=== PATIENT | male | born 1950 | race African-American/Black ===

== ENCOUNTER 2022-05-14 12:47 | Emergency (ER) | payer OTHER, BC ==
[2022-05-14 13:03] VITALS: RESP 18; TEMP 98; BMI 22.0
[2022-05-14 14:29] LABS: BASO % 0.6 % (0-2.0); EOS % 0.9 % (0-4.5); LYMPH % 22.6 % (8-40); MCH 30.3 pg (25.7-33.7); MCHC 32.6 g/dl (32.0-35.9); MEAN CELL VOLUME 92.8 fl (80-96); MEAN PLT VOLUME 8.4 fl (7.5-11.1); MONO % 9.1 % (3.8-10.2); NEUT % 66.8 % (42.8-82.8); PLATELET COUNT 189 10^3/uL (134-434); RDW 13.6 % (11.9-15.9)
[2022-05-14 14:51] LABS: ALBUMIN 3.8 g/dl (3.4-5.0); CALCIUM 9.7 mg/dL (8.5-10.1)
[2022-05-14 14:52] LABS: BLOOD UREA NITROGEN 14.3 mg/dL (7-18)
[2022-05-14 14:55] LABS: CREATININE 1.1 mg/dL (0.55-1.3)
[2022-05-14 14:56] LABS: BILIRUBIN,TOTAL 0.4 mg/dL (0.2-1); TOT PROT 7.5 g/dl (6.4-8.2)
[2022-05-14 16:04] VITALS: BP 153/72; PULSE 78
== END 2022-05-14 16:04 | disposition home or self-care (01) ==
LOC: JER 12:47
DX: R07.89 Other chest pain (principal)
CPT/HCPCS: 36415; 80053; 84484; 85025; 93005; 93010; 99284-25